=== PATIENT | female | born 1950 | race Caucasian/White ===

== ENCOUNTER → 2017-12-23 | Outpatient (CLI) | payer MEDICARE, OTHER ==
[~2017-12-23] MED LIST: ACYCLOVIR; CALCIUM 600MG+D1 TAB PO; DOXYCYCLINE 50M50 MG PO; LEVOTHYROXIN0.025 MG PO; MACROBID 1100 MG/CAP PO; MULTIVITAMIN FO1 CAP PO; NORCO 325 MG-51 TAB PO; PREMPHASE1 TAB PO; PRINIVIL10 MG; PRINIVIL2.5 MG PO; PYRIDIUM200 M1 PO; SYNTHROID 0.0.025 MG PO; ZOFRAN 4MG T4 MG/TAB PO; ZOVIRAX800 MG PO; [UNRECOGNIZED DRUG - OTHER] PO
== END ==
LOC: MC.RAD 07:43
DX: Z12.31 Encounter for screening mammogram for malignant neoplasm of breast (principal)

== ENCOUNTER 2018-01-27 05:58 | Day surgery (SDC) | payer MEDICARE, OTHER ==
[~2018-01-27] VITALS: Ht 157.5 cm; Wt 65.0 kg
[~2018-01-27 05:58] MED LIST changes: +ACTIVELLA TABLE1 TAB PO; -CALCIUM 600MG+D1 TAB PO; +PATADAY 2.5 ML2.5 ML OU; -PRINIVIL2.5 MG PO; -SYNTHROID 0.0.025 MG PO; +SYNTHROID0.088 MG/T PO; +VITAMIN D 1001000 IU PO; +ZOVIRAX400 MG PO; -ZOVIRAX800 MG PO; -[UNRECOGNIZED DRUG - OTHER] PO
[2018-01-27] MEDS ORDERED: PRESERVISION1 SGL PO (06:18)
[2018-01-27] MEDS ORDERED: EPA FISH OIL1 SGL PO (06:19)
[2018-01-27] MEDS ORDERED: ALEVE PM PO (06:19)
[2018-01-27 06:39] VITALS: BP 138/63; PULSE 75; TEMP 97.9
[2018-01-27 07:45] VITALS: BP 134/66; PULSE 73; TEMP 97.7
[2018-01-27 08:00] VITALS: BP 133/62; PULSE 70
[2018-01-27 08:15] VITALS: BP 101/48; PULSE 65
[2018-01-27 09:00] VITALS: BP 103/52
[2018-01-27 09:08] VITALS: BP 103/45; PULSE 69
== END 2018-01-27 09:18 | disposition home or self-care (01) ==
LOC: SDCO 05:58
DX: Z12.11 Encounter for screening for malignant neoplasm of colon (principal); D12.2 Benign neoplasm of ascending colon; D12.8 Benign neoplasm of rectum; K57.30 Diverticulosis of large intestine without perforation or abscess without bleeding; I10 Essential (primary) hypertension; E78.00 Pure hypercholesterolemia, unspecified; Z88.1 Allergy status to other antibiotic agents; Z88.0 Allergy status to penicillin; Z86.010 Personal history of colon polyps
CPT/HCPCS: J2250; J2405; J3010; J7030

== ENCOUNTER → 2019-01-31 | Outpatient (CLI) | payer MEDICARE, OTHER ==
[~2019-01-31] MED LIST changes: +ALEVE PM PO; +EPA FISH OIL1 SGL PO; +PRESERVISION1 SGL PO
== END ==
LOC: MC.RAD 12:50
DX: Z12.31 Encounter for screening mammogram for malignant neoplasm of breast (principal)

== ENCOUNTER → 2021-02-25 | Outpatient (CLI) | payer MEDICARE, OTHER | LOC: MC.RAD 07:51 | DX: Z12.31 Encounter for screening mammogram for malignant neoplasm of breast (principal) ==